=== PATIENT | female | born 1945 | race Caucasian/White ===

== ENCOUNTER 2023-09-12 12:19 | Emergency (ER) | payer MEDICARE, BC, SELFPAY ==
[2023-09-12 12:22] VITALS: BP 234/125; PULSE 71; RESP 16; TEMP 36.6; O2SAT 96; BMI 21.6
--- NOTE | 2023-09-12 12:47 | CRLHL7_ITS ---
For Patients: As a result of the Century Cures Act, medical imaging exams and procedure reports are released immediately into your electronic medical record. You may view this report before your referring provider. If you have questions, please contact your health care provider. Clinical Indication: Trauma. Comparison: None available. Technique: Axial imaging through the brain was performed. Coronal and sagittal reformats were performed at an independent workstation. Findings: No CT evidence of acute intracranial hemorrhage, extra-axial collection, mass effect or midline shift. Post-white matter differentiation is preserved. The ventricles are normal in size and morphology. No displaced calvarial fracture. Right parietal scalp laceration. Paransal sinuses and mastoid air cells are clear. The orbits are unremarkable. Impression: 1. No CT evidence of acute intracranial abnormality or closed-head injury. 2. Right parietal scalp laceration. Please note that all CT scans at this facility use dose modulation, iterative reconstruction, and/or weight-based dosing when appropriate to reduce radiation dose to as low as reasonably achievable. Dictated by: Vincent Estes MD @ 09/12/2023 14:04:31 (Electronically Signed)
--- NOTE | 2023-09-12 12:47 | ED.GENADULT ---
HPI - General Adult General Time Seen by Provider: 12:48 Date Seen: 09/12/23 Chief complaint: Fall/Minor Trauma Stated complaint: Fell, head injury Time Seen by Provider: 09/12/23 12:22 Source: patient Mode of arrival: ambulatory Limitations: no limitations History of Present Illness HPI narrative: Patient is a pleasant 78 year white female that is largely healthy. She has white coat hypertension in her blood pressure is elevated on presentation the ER today. She had a fall where she fell backwards [facility] the [facility] [place]. She lost her balance did not have any chest pain or other issues. She landed on her buttock and then landed back in her head. She has no neck pain she came ambulatory and she hurt the right side of her buttock as well but she is ambulatory without difficulty and has full range of motion her hip. She has a small cut on the back of her head that is about 3 cm long but very superficial and after cleansing it was closed with Dermabond the patient denies any specific neck pain she is on blood thinners she has been largely quite healthy. She follows her blood pressure at home it is in the 120 systolic range typically. Related Data Home Medications Medication Instructions Recorded Confirmed losartan-hydrochlorothiazide 09/12/23 metoprolol 09/12/23 Allergies Allergy/AdvReac Type Severity Reaction Status Date / Time No Known Drug Allergies Allergy Verified 09/12/23 12:27 Review of Systems Status of ROS: Reports: 6 or more systems reviewed and unremarkable except as noted in History and below Exam Narrative: Exam Narrative: Objective: Patient's blood pressure is significantly elevated this will be retested Other vital signs are within normal limits Alert orient x3 no distress patient is ambulatory about the room without difficulty She has a 3 cm superficial laceration in the back of her head that was Dermabonded after sterile cleansing this was in the occipital parietal area more toward the right rest of HEENT is unremarkable no facial 8 symmetry no trauma to the face mouth is clear Neck no midline tenderness full range of motion the neck without difficulty or discomfort shoulders chest back upper lower extremities unremarkable patient has full range of motion of her right and left hip. Distal CMS intact Const: Vital Signs, click to edit/add: Vital Signs - 24 hr 09/12/23 12:22 09/12/23 13:20 Temperature 97.8 F Pulse Rate [Pulse Oximeter] 71 72 Respiratory Rate 16 16 Blood Pressure [Ri ght Upper Arm] 234/125 H 213/105 H Pulse Oximetry 96 99 Oxygen Delivery Me thod Room Air Room Air Course Vital Signs Vital signs: Initial Vital Signs Temperature 97.8 F 09/12/23 12:22 Temperature Source Temporal Artery Scan 09/12/23 12:22 Pulse Rate 71 09/12/23 12:22 Respiratory Rate 16 09/12/23 12:22 Blood Pressure 234/125 H 09/12/23 12:22 Blood Pressure Mean 161 H 09/12/23 12:22 Blood Pressure Position Supine 09/12/23 12:22 Pulse Oximetry 96 09/12/23 12:22 Oxygen Delivery Method Room Air 09/12/23 12:22 Vital Signs Temperature 97.8 F 09/12/23 12:22 Pulse Rate 71 09/12/23 12:22 Respiratory Rate 16 09/12/23 12:22 Blood Pressure 234/125 H 09/12/23 12:22 Pulse Oximetry 96 09/12/23 12:22 Oxygen Delivery Method Room Air 09/12/23 12:22 Temperature 97.8 F 09/12/23 12:22 Pulse Rate 72 09/12/23 13:20 Respiratory Rate 16 09/12/23 13:20 Blood Pressure 213/105 H 09/12/23 13:20 Pulse Oximetry 99 09/12/23 13:20 Oxygen Delivery Method Room Air 09/12/23 13:20 Medical Decision Making MDM Narrative Medical decision making narrative: 78-year-old female fell backwards and hit the back of her head she landed on her right buttock. She has range of motion her hips are full discussed imaging her pelvis but given she is ambulatory she felt that was not necessary and that seems reasonable. After sterile scrub Dermabond was applied to her scalp laceration for closure and there was good he hemostasis and approximation of the skin. Because of the patient's age in fall the fact she hit her head and her blood pressure is elevated I would recommend a CT scan of her head, and this will be done now. We checked on her tetanus status is up-to-date. Will recheck her blood pressure as mentioned above. If the patient's CT scan is negative should be allowed to go home rest light activity would recommend her check on her every couple of hours for the next 6-8 hours. Then light activity for the next week and then recheck with regular doctor in the next 5-7 days, would recommend she keep the wound dry that was Dermabonded for the next 3-4 days and then may shower . Keep the Dermabond dry until that time. Patient did have some tenderness right buttock area discussed the possibility of pubic rami fracture but she declined an x-ray at this time. Addendum to 10:[address] scan of the head is basically unremarkable, Dermabond applied to the wound, close head trauma observation q.2 hours for 8 hours with her 's guidance an observation. May take Tylenol as needed, return as needed. Follow up with primary care in 5-7 days Discharge Plan Discharge Clinical Impression: Elevated blood pressure reading, Fall, Laceration of scalp Patient Disposition: Home w/ Parent or Adult Condition: Stable Instructions: Laceration (ED), Skin Adhesive Care (ED) Additional Instructions: Light activity, Tylenol as needed, keep scalp dry for 3-4 days. Return as needed. Recommend your family checks on your over 2 hours for the next 6-8 hours. Activity Level: Light activity Discharge Diet: Regular Prescriptions: No Action metoprolol losartan-hydrochlorothiazide Stand Alone Forms: [employer] Info Instructions
[2023-09-12 13:20] VITALS: BP 213/105; PULSE 72; RESP 16; O2SAT 99
== END 2023-09-12 14:18 | disposition home or self-care (01) ==
PROVIDERS: Emergency Provider Family Medicine
DX: S01.01XA Laceration without foreign body of scalp, initial encounter (principal); W18.30XA Fall on same level, unspecified, initial encounter; R03.0 Elevated blood-pressure reading, without diagnosis of hypertension
CPT/HCPCS: 12002; 70450; 99283; 99284